=== PATIENT | female | born 1955 | race Caucasian/White ===

== ENCOUNTER → 2017-05-09 | Outpatient (CLI) | payer MEDICARE, MEDICAID ==
--- NOTE | 2017-05-10 09:05 | RADIOLOGY REPORT PS360 ---
US [id number] COMPARISON: None HISTORY: Left renal cyst seen on CT scan of abdomen performed elsewhere TECHNIQUE: Targeted ultrasound the kidneys FINDINGS: The right kidney measures 12.0 x 4.6 x 5.5 cm. There is mild uniform cortical thinning. There is no hydronephrosis or other abnormality. The spleen appears normal. Left kidney measures 9.2 x 3.2 x 2.9 cm. There is mild uniform cortical thinning. There is a dominant cyst mid and lower pole measuring 2.9 x 2.9 x 2.9 cm. There is fairly good acoustic enhancement deep to the lesion. There is good vascularity to both kidneys. IMPRESSION: Left kidney lower limits of normal in size with dominant and likely benign cyst mid to lower pole. There is slight irregularity of the interface of the cyst with the renal parenchyma but suggest patient have a follow-up ultrasound of the kidneys and 4-6 months to evaluate for interval stability of this likely benign cyst.
== END ==
LOC: RAD 09:56
DX: N28.1 Cyst of kidney, acquired (principal)